=== PATIENT | male | born 2000 | race Hispanic/Latino ===

== ENCOUNTER 2020-08-14 09:25 | Emergency (ER) | payer OTHER ==
[2020-08-14] MEDS ORDERED: Ketorolac Tromethamine 30 MG/ML VIAL ONE (10:06)
== END 2020-08-14 10:29 | disposition home or self-care (01) ==
LOC: CSHERS 09:25
DX: K13.0 Diseases of lips (principal)
CPT/HCPCS: 96372; 99283; J1885

== ENCOUNTER 2021-04-26 11:22 | Emergency (ER) | payer OTHER ==
[2021-04-26] MEDS ORDERED: Diazepam 5 MG TAB ONE (14:29)
[2021-04-26] MEDS ORDERED: Lidocaine 1% w/Epinephrine 1:100K 30 ML VIAL ONE (14:55)
== END 2021-04-26 16:15 | disposition home or self-care (01) ==
LOC: CSHERS 11:22
DX: L02.412 Cutaneous abscess of left axilla (principal); L03.112 Cellulitis of left axilla
CPT/HCPCS: 10060

== ENCOUNTER 2021-09-16 15:50 | Emergency (ER) | payer OTHER | END 2021-09-16 17:10 | disposition home or self-care (01) | LOC: CSHERS 15:50 | DX: L03.115 Cellulitis of right lower limb (principal) | CPT/HCPCS: 87070; 87077; 87186; 87205; 99283 ==